=== PATIENT | male | born 1995 | race Caucasian/White ===

== ENCOUNTER → 2021-01-05 | Outpatient (CLI) | payer BC ==
--- NOTE | 2021-01-07 17:27 | SLEEPCENT ---
NOCTURNAL POLYSOMNOGRAPHY DATE: 01/05/2021 ORDERED BY: IAN Esquivel Nocturnal polysomnography was performed for evaluation of sleep physiology in this patient with a history of snoring and excessive somnolence. 7 hours and 22 minutes of data were reviewed. There were 338 minutes of sleep identified. Sleep latency was short at 3.5 minutes. REM latency was delayed at 135 minutes. Sleep architecture showed poor progression. Following intervention, improvements were seen. Overall sleep efficiency was 78.3%. The electrocardiogram showed a sinus rhythm with an average heart rate of 78 beats per minute. EEG showed normal waveforms for wake and sleep. There were 109 respiratory events identified of 10 seconds in duration or greater for an apnea-hypopnea index of 19.3. Having clearly established the presence of obstructive sleep apnea syndrome early in testing with oxygen desaturations into the 70s, testing was stopped shortly after 1 a.m. for the application of pressure therapy. The patient was fit with a [employer] Mirage Quattro full face mask of large size, 4 cm of water pressure were applied to the circuit, and the lights were then extinguished. Throughout the remaining hours of testing, pressure titration was performed to an optimal pressure of +3 with which, the patient slept through REM without respiratory event or oxygen desaturations. IMPRESSION: Severe obstructive sleep apnea syndrome (G47.33), apnea-hypopnea index 19.3. RECOMMENDATION: Nightly use of pressure therapy 9 cm of water.
== END ==
LOC: M SLEEP 20:00
PROVIDERS: ATTEND Nurse Practitioner Family
DX: G47.33 Obstructive sleep apnea (adult) (pediatric) (principal); R06.83 Snoring; R40.0 Somnolence

== ENCOUNTER 2021-03-19 21:21 | Emergency (ER) | payer BC ==
[~2021-03-19] VITALS: Ht 188 cm; Wt 150.9 kg
[2021-03-19] MEDS ORDERED: PHEN37.52 (21:40)
[2021-03-20 00:49] VITALS: BP 142/63
== END 2021-03-20 00:51 | disposition home or self-care (01) ==
LOC: M ED 21:21
DX: I83.892 Varicose veins of left lower extremity with other complications (principal); Z79.899 Other long term (current) drug therapy; Z88.0 Allergy status to penicillin; Z88.1 Allergy status to other antibiotic agents

== ENCOUNTER → 2022-01-09 | Outpatient (REF) | payer BC ==
[~2022-01-09] MED LIST: PHEN37.58
[2022-01-09 10:10] LABS: SEMEN APPEARANCE OPAQUE (OPAQUE); SEMEN VISCOSITY LIQUID (LIQUID); SEMEN VOLUME 5.5 ml (2.0-5.0)
[2022-01-09 10:11] LABS: SPERM CONCENTRATION 8.4 M/ml (>=15.0); WBC CONCENTRATION >1 M/ml (<=1 M/ml)
== END ==
LOC: M LAB REF 09:50
PROVIDERS: ATTEND Physician Assistant
DX: Z30.09 Encounter for other general counseling and advice on contraception (principal); N46.9 Male infertility, unspecified

== ENCOUNTER → 2022-01-21 | Outpatient (CLI) | payer BC ==
[2022-01-21 10:55] LABS: FOLLICLE STIMULATING HORMONE 9.2 mIU/mL (1.4-18.1); LUTEINIZING HORMONE 4.8 mIU/mL (1.5-9.3)
[2022-01-22 21:09] LABS: TESTOSTERONE FREE (DIRECT) 8.7 pg/mL (9.3-26.5)
== END ==
LOC: M LAB 09:18
PROVIDERS: ATTEND Physician Assistant
DX: N46.9 Male infertility, unspecified (principal)

== ENCOUNTER → 2022-06-23 | Outpatient (CLI) | payer BC | LOC: M RAD 11:04 | PROVIDERS: ATTEND Physician Assistant | DX: K42.9 Umbilical hernia without obstruction or gangrene (principal) ==